=== PATIENT | male | born 1935 | race Caucasian/White ===

== ENCOUNTER 2019-11-26 08:29 | Emergency (ER) | payer MEDICARE, MEDICAID ==
[2019-11-26] MEDS ORDERED: Lorazepam 2 MG/ML VIAL ONE (08:57)
[2019-11-26 09:01] LABS: #Basophils 0.1 thou/uL (0.0-0.2); #Lymphocytes 0.7 thou/uL (1.20-3.40); #Monocytes 1.9 thou/uL (0.11-0.59); #Neutrophils 13.4 thou/uL (1.40-6.50); %Basophils 0.4 % (0.0-1.0); %Lymphocytes 4.1 % (21.0-51.0); %Monocytes 11.8 % (0.0-10.0); %Neutrophils 83.6 % (42.0-75.0); Mean Corpuscular HGB CONC 32.1 g/dL (32.0-36.0); Mean Corpuscular Hemoglobin 31.6 pg (27.0-31.0); Mean Corpuscular Volume 98.4 fL (78.0-98.0); Mean Platelet Volume 7.9 fL (7.4-10.4); Platelet Count 327 thou/uL (130-400); RBC Distribution Width 12.7 % (11.5-14.5); Red Blood Cell (RBC) Count 4.76 mill/uL (4.70-6.10)
[2019-11-26] MEDS ORDERED: levETIRAcetam 500 MG/100 ML PREMIX BAG ONE (09:02)
[2019-11-26 09:20] LABS: ALT (SGPT) 58 U/L (8-55); AST (SGOT) 129 U/L (5-34); Albumin 3.7 g/dL (3.4-4.8); Alkaline Phosphatase 100 U/L (40-110); Anion Gap 18 mmol/L (10-20); BUN (Urea Nitrogen) 43 mg/dL (8.4-25.7); Bilirubin, Total 0.3 mg/dL (0.2-1.2); Calc. Creatinine Clearance 0 mL/min (70-130); Calcium 8.6 mg/dL (7.8-10.44); Carbon Dioxide 20 mmol/L (23-31); Chloride 111 mmol/L (98-107); Estimated GFR-MDRD 48; Globulin 3.5 g/dL (2.4-3.5); Glucose 146 mg/dL (83-110); Potassium 3.7 mmol/L (3.5-5.1); Protein, Total 7.2 g/dL (5.8-8.1); Sodium 145 mmol/L (136-145)
--- NOTE | 2019-11-26 09:33 | RAD ---
PORTABLE CHEST 1 VIEW: Date: 11/26/2019 Time: 0852 hours HISTORY: Altered mental status. COMPARISON: 11/17/2011. FINDINGS/IMPRESSION: The heart size is borderline. No focal areas of consolidation, pneumothoraces, or pleural effusions a re seen. There is mild prominence of the interstitial markings predominantly in the right lung. POS: [id number]
[2019-11-26] MEDS ORDERED: Vancomycin 1.5 GRAM/300 ML BAG ONE (09:51)
[2019-11-26] MEDS ORDERED: Ampicillin 500 MG VIAL ONE (09:51)
[2019-11-26] MEDS ORDERED: Aspirin 325 MG TAB ONE (09:51)
[2019-11-26] MEDS ORDERED: Ampicillin/Sulbactam 3 GM VIAL ONE (09:55)
--- NOTE | 2019-11-26 10:46 | CT ---
CT BRAIN WITHOUT CONTRAST: Date: 11/26/2019 HISTORY: Altered mental status. FINDINGS: Comparison made with exam of 07/21/2011. Changes of cortical atrophy are again seen. 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 The ventricular size is stable and the basilar cisterns are patent. There is a new acute 14.0 mm focus of acute hemorrhage in the right posterior temporal lobe with surr ounding vasogenic edema. The bony calvarium is intact. The visualized paranasal sinuses and mastoid a ir cells are well aerated. IMPRESSION: Acute 14.0 mm focus of right hemispheric hemorrhage. Discussed over the telephone with ER physician, Dr. Paul Bullock at 0957 hours. CODE CR. POS: [id number]
== END 2019-11-26 12:01 | disposition short-term general hospital (02) ==
LOC: MADERS 08:29
DX: I62.9 Nontraumatic intracranial hemorrhage, unspecified (principal); R41.82 Altered mental status, unspecified; I24.9 Acute ischemic heart disease, unspecified; J69.0 Pneumonitis due to inhalation of food and vomit; Z79.82 Long term (current) use of aspirin; Z79.899 Other long term (current) drug therapy
CPT/HCPCS: 70450; 71045; 80053; 82553; 83605; 83880; 84484; 85025; 87040; 93005; 96365; 96366; 96367; 96368; 96375; J0290; J0295; J1953; J2060; J3370